=== PATIENT | male | born 1950 | race Two or more races ===

== ENCOUNTER 2022-08-28 18:50 | Emergency (ER) | payer MEDICARE, OTHER ==
[~2022-08-28] VITALS: Ht 167.6 cm; Wt 66.4 kg
[2022-08-28] MEDS ORDERED: SODIUM CHLORIDE 0.9% 1,000 ML IV ONE (20:15)
[2022-08-28 21:23] LABS: Basophils # (auto) 0.1 10 ^3/uL (0-0.2); Basophils % (auto) 0.9 % (0.0-2.0); Eosinophils # (auto) 0.2 10 ^3/uL (0-0.8); Eosinophils % (auto) 2.6 % (0.0-7.0); Hematocrit 44.6 % (41.0-53.0); Hemoglobin 14.8 g/dL (13.5-17.5); Lymphocytes % (auto) 13.6 % (10.0-50.0); Mean Corpuscular Hgb Conc. 33.1 g/dL (32.0-36.0); Mean Corpuscular Volume 87.4 fL (80.0-100.0); Monocytes # (auto) 0.4 10 ^3/uL (0-1.3); Monocytes % (auto) 5.5 % (0.0-12.0); Neutrophils # (auto) 5.9 10 ^3/uL (1.6-8.6); Neutrophils % (auto) 77.4 % (37.0-80.0); Nucleated Red Blood Cells % 0.1 %; Red Blood Cells 5.11 10^6/uL (4.5-5.90); Red Cell Distribution Width 13.5 % (11.8-14.3); White Blood Cell 7.6 10^3/uL (4.4-10.8)
[2022-08-28 21:40] LABS: INR 1.02 (0.9-1.15); Partial Thromboplastin Time 27.2 sec (24.6-33.4)
[2022-08-28 21:42] LABS: Albumin 4.3 g/dL (3.4-5.0); Calcium 9.3 mg/dL (8.5-10.1); Magnesium 1.7 mg/dL (1.6-2.6); Potassium 3.8 mmol/L (3.5-5.1)
[2022-08-28 21:44] LABS: BUN/Creatinine Ratio 11.3; Bilirubin, Total 1.4 mg/dL (0.2-1.0); Total Protein 7.7 g/dL (6.4-8.2)
[2022-08-28 23:59] VITALS: BP 122/69
== END 2022-08-29 00:02 | disposition home or self-care (01) ==
LOC: ER 18:58
DX: I10 Essential (primary) hypertension (principal); R07.89 Other chest pain; F20.9 Schizophrenia, unspecified; R42 Dizziness and giddiness; R51.9 Headache, unspecified; Z98.61 Coronary angioplasty status
CPT/HCPCS: 36415; 70450; 71046; 80053; 83735; 84484; 85025; 85610; 85730; 93005